=== PATIENT | male | born 1980 | race Caucasian/White ===

== ENCOUNTER → 2018-12-26 | Outpatient (CLI) | payer OTHER ==
--- NOTE | 2018-12-26 16:07 | RAD ---
Indication: Fall. TECHNIQUE: 3 views of the right elbow COMPARISON: None FINDINGS/ impression: Punctate calcific density is seen adjacent to the medial aspect of the radial head in the elbow joint space, nonspecific but may represent an avulsion fracture or loose body. No joint effusion. Electronically signed by: Edgardo Casey DO (12/26/2018 4:04 PM) [facility]
== END | disposition home or self-care (01) ==
LOC: PMG 13:32
PROVIDERS: ATTEND Physician Assistant Medical
DX: M25.521 Pain in right elbow (principal); W19.XXXA Unspecified fall, initial encounter; Y93.89 Activity, other specified; Y92.89 Other specified places as the place of occurrence of the external cause; Y99.8 Other external cause status
CPT/HCPCS: 73080